=== PATIENT | female | born 1950 | race Caucasian/White ===

== ENCOUNTER 2018-03-21 08:44 | Outpatient (CLI) | payer MEDICARE | END 2018-03-21 08:45 | disposition home or self-care (01) | LOC: BICMAMMO 08:44 | PROVIDERS: ATTEND Family Medicine | DX: Z12.31 Encounter for screening mammogram for malignant neoplasm of breast (principal); N64.89 Other specified disorders of breast | CPT/HCPCS: 77063; 77067 ==

== ENCOUNTER 2018-04-20 14:20 | Outpatient (CLI) | payer MEDICARE | END 2018-04-20 14:21 | disposition home or self-care (01) | LOC: BICULT 14:20 | PROVIDERS: ATTEND Family Medicine | DX: R92.8 Other abnormal and inconclusive findings on diagnostic imaging of breast (principal); N64.89 Other specified disorders of breast | CPT/HCPCS: 77065; G0279 ==

== ENCOUNTER 2018-11-03 13:54 | Outpatient (CLI) | payer MEDICARE | END 2018-11-03 13:55 | disposition home or self-care (01) | LOC: BICMAMMO 13:54 | PROVIDERS: ATTEND Family Medicine | DX: R92.8 Other abnormal and inconclusive findings on diagnostic imaging of breast (principal); N64.89 Other specified disorders of breast | CPT/HCPCS: 77065; G0279 ==

== ENCOUNTER 2019-04-26 09:15 | Outpatient (CLI) | payer MEDICARE ==
--- NOTE | 2019-04-26 10:19 | MMO ---
Bilateral MAMMO Bilat Diag DDI+ANGUS. CLINICAL HISTORY: Patient is 68 years old and is seen for diagnostic exam. The patient has no family history of breast cancer. The patient has no personal history of cancer. VIEWS: The views performed were: bilateral craniocaudal with tomosynthesis; bilateral mediolateral oblique with tomosynthesis; bilateral mediolateral; and left exaggerated craniocaudal. FILMS COMPARED: The present examination has been compared to prior imaging studies performed at [facility] on 03/21/2018, 04/20/2018, 11/03/2018 and 04/26/2019. MAMMOGRAM FINDINGS: The breasts are heterogeneously dense, which could obscure a lesion on mammography. There is a stable focal asymmetry seen in the axillary tail of the left breast. Sonography of this region demonstrates a normal appearing lymph node without addtional abnormality. It is uncertain whether this lymph node corresponds to the mammographic finding. In the right breast, there are no suspicious masses, calcifications or areas of architectural distortion. IMPRESSION: STABLE FOCAL ASYMMETRY IN THE LEFT BREAST IS PROBABLY BENIGN. FOLLOW-UP IN 6 MONTHS IS RECOMMENDED. THE RESULTS OF THIS EXAM WERE SENT TO THE PATIENT. ACR BI-RADS Category 3 - Probably benign finding - short interval follow-up suggested. [facility] will notify the patient of the need for additional imaging services. MAMMOGRAPHY NOTE: 1. A negative mammogram report should not delay a biopsy if a dominant of clinically suspicious mass is present. 2. Approximately 10% to 15% of breast cancers are not detected by mammography. 3. Adenosis and dense breasts may obscure an underlying neoplasm.
--- NOTE | 2019-04-26 11:16 | ULT ---
LIMITED LEFT BREAST ULTRASOUND: 04/26/2019 PROVIDED CLINICAL HISTORY: Abnormal mammogram. FINDINGS: Limited sonographic interrogation was performed at the 2 o'clock position in the left breast, in the region of mammographic concern. An intramammary lymph node is seen in this location. No concerning sonographic findings are evident. IMPRESSION: BI-RADS category 2-Benign findings. Return to annual screening mammography recommended. POS: OFF
== END 2019-04-26 09:16 | disposition home or self-care (01) ==
LOC: BICMAMMO 09:15
PROVIDERS: ATTEND Family Medicine
DX: R92.8 Other abnormal and inconclusive findings on diagnostic imaging of breast (principal); N64.89 Other specified disorders of breast
CPT/HCPCS: 76642; 77066; G0279

== ENCOUNTER 2019-10-26 08:54 | Outpatient (CLI) | payer MEDICARE ==
--- NOTE | 2019-10-26 10:10 | MMO ---
Left Breast MAMMO Unilat Diag DDI LT+ANGUS. CLINICAL HISTORY: Patient is 69 years old and is seen for follow-up at short-interval from prior study. The patient has no family history of breast cancer. The patient has no personal history of cancer. VIEWS: The views performed were: left craniocaudal with tomosynthesis; left mediolateral oblique with tomosynthesis; left mediolateral with tomosynthesis; and left exaggerated craniocaudal. FILMS COMPARED: The present examination has been compared to prior imaging studies performed at [facility] on 11/03/2018, 04/26/2019 and 10/26/2019. This study has been interpreted with the assistance of computer-aided detection. MAMMOGRAM FINDINGS: There are scattered fibroglandular densities. There is a stable mass seen in the MLO view only seen in the posterior upper region of the left breast. The small mass was first noted in March 2018. One last follow up mammogram and ultrasound of the left breast in March or April of 2020 would be the 2 year anniversary. If it is stable by that time, then no further follow up will be necessary. IMPRESSION: STABLE MASS IN THE LEFT BREAST IS PROBABLY BENIGN. FOLLOW-UP IN 6 MONTHS IS RECOMMENDED. THE RESULTS OF THIS EXAM WERE SENT TO THE PATIENT. ACR BI-RADS Category 3 - Probably benign finding - short interval follow-up suggested. [facility] will notify the patient of the need for additional imaging services. MAMMOGRAPHY NOTE: 1. A negative mammogram report should not delay a biopsy if a dominant of clinically suspicious mass is present. 2. Approximately 10% to 15% of breast cancers are not detected by mammography. 3. Adenosis and dense breasts may obscure an underlying neoplasm. Reported by: ROBBY FANG MD Electonically Signed: [id number]
--- NOTE | 2019-10-26 11:20 | ULT ---
ULTRASOUND LEFT BREAST LIMITED: 10/26/2019 HISTORY: A 69-year-old female for followup of left breast mass. COMPARISON: Ultrasound of 04/26/2019. TECHNIQUE: Focused ultrasound of posterior upper left breast from 11 to 2 o'clock. FINDINGS: At the posterior upper outer quadrant, at the axillary tail, there is an approximately 1.5 cm mixed h yperechoic and intermediate echogenicity mass, consistent with a lymph node. It has not changed. It is still uncertain whether the sonographic finding corresponds to the mammographic nodule. No othe r focal lesion is identified on the ultrasound. The patient's original mammogram in which the nodule was discovered was in March 2018. Another final fo llow-up left mammogram and left breast ultrasound will be recommended for March or April 2020 which woul d be the two year anniversary of the original discovery. If the mass remains the same at that time, t hen no further short interval followups will be necessary. IMPRESSION: 1. BI-RADS 3 - probably benign. Short interval followup suggested. 2. Recommend one final left breast ultrasound and left mammogram followup in March or April 2020. POS: NAIN
== END 2019-10-26 08:55 | disposition home or self-care (01) ==
LOC: BICMAMMO 08:54
PROVIDERS: ATTEND Family Medicine
DX: R92.8 Other abnormal and inconclusive findings on diagnostic imaging of breast (principal); N63.21 Unspecified lump in the left breast, upper outer quadrant
CPT/HCPCS: 76642; 77065; G0279

== ENCOUNTER 2020-04-29 09:19 | Outpatient (CLI) | payer MEDICARE ==
--- NOTE | 2020-04-29 10:26 | ULT ---
EXAM: US Breast Limited Lt PROVIDED CLINICAL HISTORY: Left breast mass COMPARISON: Concurrent diagnostic mammogram Breast ultrasound in 6 10/26/2019 and 04/26/2019 FINDINGS: The previously described mixed echogenicity mass at 2:00 position of the left breast is not demonstra tayo on the current study. At the 2:00 position of the left breast there is a poorly marginated hypoechoic mass with posterior shadowing measuring approximately 7 mm. This was not seen on prior ult rasound. This is felt to correspond to the mammographic finding. IMPRESSION: Sonographic findings on the current examination are suspicious. Ultrasound-guided biopsy is recommend ed. Results and recommendations discussed with the patient and questions answered. BI-RADS 4 -- suspicious abnormality, biopsy recommended
--- NOTE | 2020-04-29 10:27 | MMO ---
Bilateral MAMMO Bilat Diag DDI+ANGUS. CLINICAL HISTORY: Patient is 69 years old and is seen for diagnostic exam. The patient has no family history of breast cancer. The patient has no personal history of cancer. VIEWS: The views performed were: bilateral craniocaudal with tomosynthesis; bilateral mediolateral oblique with tomosynthesis; bilateral mediolateral with tomosynthesis; and left exaggerated craniocaudal. FILMS COMPARED: The present examination has been compared to prior imaging studies performed at [facility] on 04/26/2019, 10/26/2019 and 04/29/2020. This study has been interpreted with the assistance of computer-aided detection. MAMMOGRAM FINDINGS: There are scattered fibroglandular densities. There is a focal asymmetry measuring 8 millimeters with spiculated margins seen in the left breast at 2 o'clock. This is slightly larger than on prior imaging. Today's ultrasound demonstrates a corresponding suspicious mass, for which biopsy is recommended. In the right breast, there are no suspicious masses, calcifications or areas of architectural distortion. IMPRESSION: FOCAL ASYMMETRY IN THE LEFT BREAST IS SUSPICIOUS. BIOPSY IS RECOMMENDED. THE RESULTS OF THIS EXAM WERE SENT TO THE PATIENT. ACR BI-RADS Category 4 - Suspicious abnormality - biopsy should be considered MAMMOGRAPHY NOTE: 1. A negative mammogram report should not delay a biopsy if a dominant of clinically suspicious mass is present. 2. Approximately 10% to 15% of breast cancers are not detected by mammography. 3. Adenosis and dense breasts may obscure an underlying neoplasm. Reported by: OSMAR FLOREZ MD Electonically Signed: [id number]
== END 2020-04-29 09:20 | disposition home or self-care (01) ==
LOC: BICMAMMO 09:19
PROVIDERS: ATTEND Family Medicine
DX: R92.8 Other abnormal and inconclusive findings on diagnostic imaging of breast (principal); N64.89 Other specified disorders of breast
CPT/HCPCS: 76642; 77066; G0279

== ENCOUNTER 2020-05-08 12:35 | Outpatient (CLI) | payer MEDICARE ==
--- NOTE | 2020-05-08 12:53 | MMO ---
Left Breast MAMMO Unilat Diag DDI LT. CLINICAL HISTORY: Patient is 69 years old and is seen for diagnostic exam. The patient has no family history of breast cancer. The patient has no personal history of cancer. The patient has a history of left Excisional Biopsy in April,. VIEWS: The views performed were: left craniocaudal and left mediolateral oblique. FILMS COMPARED: The present examination has been compared to prior imaging studies performed at [facility] on 10/26/2019 and 04/29/2020. This study has been interpreted with the assistance of computer-aided detection. MAMMOGRAM FINDINGS: There are scattered fibroglandular densities. There is a new biopsy clip seen in the left breast. IMPRESSION: NEW BIOPSY CLIP IN THE LEFT BREAST IS CONFIRMED UTILIZING POST PROCEDURE MAMMOGRAM. THE RESULTS OF THIS EXAM WERE SENT TO THE PATIENT. MAMMOGRAPHY NOTE: 1. A negative mammogram report should not delay a biopsy if a dominant of clinically suspicious mass is present. 2. Approximately 10% to 15% of breast cancers are not detected by mammography. 3. Adenosis and dense breasts may obscure an underlying neoplasm. Reported by: OSMAR FLOREZ MD Electonically Signed: [id number]
== END 2020-05-08 12:36 | disposition home or self-care (01) ==
LOC: BICMAMMO 12:35
PROVIDERS: ATTEND Specialist
DX: N63.20 Unspecified lump in the left breast, unspecified quadrant (principal)
CPT/HCPCS: 88305; 88341; 88342

== ENCOUNTER 2020-05-16 05:53 | Outpatient (CLI) | payer MEDICARE, OTHER ==
[2020-05-16 14:15] LABS: #Eosinphils 0.2 thou/uL (0.0-0.7); #Lymphocytes 1.2 thou/uL (1.20-3.40); #Monocytes 0.4 thou/uL (0.11-0.59); #Neutrophils 1.9 thou/uL (1.40-6.50); %Basophils 0.8 % (0.0-1.0); %Eosinophils 4.3 % (0.0-10.0); %Lymphocytes 33.1 % (21.0-51.0); %Monocytes 11.7 % (0.0-10.0); %Neutrophils 50.1 % (42.0-75.0); Hemoglobin 14.7 g/dL (12.0-16.0); Mean Corpuscular HGB CONC 31.7 g/dL (32.0-36.0); Mean Corpuscular Hemoglobin 31.1 pg (27.0-31.0); Mean Corpuscular Volume 98.2 fL (78.0-98.0); Mean Platelet Volume 8.5 fL (7.4-10.4); Platelet Count 208 thou/uL (130-400); RBC Distribution Width 11.7 % (11.5-14.5); Red Blood Cell (RBC) Count 4.73 mill/uL (4.20-5.40); White Blood Cell (WBC) Count 3.7 thou/uL (4.8-10.8)
[2020-05-16 14:25] LABS: Anion Gap 14 mmol/L (10-20); BUN (Urea Nitrogen) 14 mg/dL (9.8-20.1); Calc. Creatinine Clearance 0 mL/min (70-130); Calcium 9.5 mg/dL (7.8-10.44); Carbon Dioxide 27 mmol/L (23-31); Chloride 102 mmol/L (98-107); Estimated GFR-MDRD 72; Glucose 105 mg/dL (80-115); Potassium 4.1 mmol/L (3.5-5.1); Sodium 139 mmol/L (136-145)
[2020-05-17 16:01] LABS: SARS-CoV-2 MS2 Positive; SARS-CoV-2 N Gene Negative; SARS-CoV-2 S Gene Negative; SARS-CoV-2 orf1ab Negative
--- NOTE | 2020-05-20 10:10 | EKG ---
Test Reason : PREOP FOR 05/21 Blood Pressure : / mmHG Vent. Rate : 080 BPM Atrial Rate : 080 BPM P-R Int : 138 ms QRS Dur : 090 ms QT Int : 392 ms P-R-T Axes : 057 006 034 degrees QTc Int : 452 ms Normal sinus rhythm with sinus arrhythmia Nonspecific ST abnormality Abnormal ECG No previous ECGs available Confirmed by RAMON MICHAUD (2) on 05/20/2020 10:09:53 AM Referred By: HENRIETTA Confirmed By:RAMON MICHAUD
== END 2020-05-16 05:54 | disposition home or self-care (01) ==
LOC: LABBT 05:53
PROVIDERS: ATTEND Specialist
DX: Z01.818 Encounter for other preprocedural examination (principal); Z11.59 Encounter for screening for other viral diseases; C50.912 Malignant neoplasm of unspecified site of left female breast
CPT/HCPCS: 80048; 85025; 93005; U0003; 87635; 93010

== ENCOUNTER 2020-05-21 07:31 | Day surgery (SDC) | payer MEDICARE ==
[2020-05-15 12:42] VITALS: BMI 33.0
--- NOTE | 2020-05-21 09:03 | NM ---
Exam: Nuclear medicine lymphoscintigraphy HISTORY: Left breast cancer TECHNIQUE: Patient was administered total of 0.379 mm of technetium 90 9M filtered sulfur colloid sub cutaneously at the 12:00, 3:00, 6:00 and 9:00 positions FINDINGS: There is a left axillary sentinel lymph node IMPRESSION: Left axillary sentinel lymph node.
[2020-05-21] MEDS ORDERED: Acetaminophen 500 MG TAB ONE (09:11)
[2020-05-21] MEDS ORDERED: Ketorolac Tromethamine 30 MG/ML VIAL ONE (09:11)
[2020-05-21] MEDS ORDERED: Methylene Blue 50 MG/10 ML AMPUL ONE (09:44)
[2020-05-21] MEDS ORDERED: Lidocaine 1% w/Epinephrine 1:100K 20 ML VIAL ONE (09:44)
[2020-05-21] MEDS ORDERED: Bupivacaine 0.25% HCL 30 ML VIAL ONE (09:44)
[2020-05-21] MEDS ORDERED: Ondansetron PF 4 MG/2 ML Vial ONE ×2 (09:45→12:45)
[2020-05-21] MEDS ORDERED: Fentanyl 100 MCG/2 ML VIAL ONE (09:45)
[2020-05-21] MEDS ORDERED: Isosulfan Blue 50 MG/5 ML VIAL ONE (09:50)
[2020-05-21] MEDS ORDERED: Dexamethasone 20 MG/5 ML VIAL ONE (12:45)
[2020-05-21] MEDS ORDERED: Lidocaine 1% PF 5 ML VIAL ONE (12:45)
[2020-05-21] MEDS ORDERED: EPHEDRINE 25 MG/5 ML SYRINGE ONE (12:45)
[2020-05-21] MEDS ORDERED: PROPOFOL 200 MG/20 ML VIAL ONE (12:45)
--- NOTE | 2020-05-22 11:27 | OP ---
DATE OF PROCEDURE: 05/21/2020 PREOPERATIVE DIAGNOSIS: Left breast invasive ductal carcinoma. POSTOPERATIVE DIAGNOSIS: Left breast invasive ductal carcinoma. PROCEDURE PERFORMED: Left breast ultrasound-guided needle localization, left axillary sentinel lymph node mapping, left sentinel lymph node biopsy, left breast needle localized lumpectomy (performed through the same incision). ANESTHESIA: General endotracheal. INDICATIONS: The patient is a 69-year-old white female. She had presented with a concerning lesion in the upper outer left breast that was biopsy proven to be adenocarcinoma. She was taken to the operating room at this time for definitive treatment of her breast cancer. DESCRIPTION OF OPERATION: Informed consent was obtained. The patient underwent preoperative lymphoscintigraphy identifying left axillary sentinel lymph nodes. 3 mL of Lymphazurin was infiltrated in the left breast in the periareolar subdermal tissue. This was massaged for 5 minutes. The breast and axilla were then prepped with ChloraPrep and draped in sterile fashion. Attention was turned first to the breast lesion. This was identified with ultrasound and location was mapped in a grid fashion on the breast. A localizing needle was then passed through the lesion in a medial to lateral fashion. Taking this into account, local anesthetic was infiltrated and a transverse left axillary incision was created. Dissection was carried through skin and subcutaneous tissue. Neoprobe was utilized to identify areas of maximum radio intensity. I was able to identify 2 separate radio intense lymph nodes. The first was much more radio avid and contained blue dye. Following the removal of these 2 lymph nodes, there was no other area of significant radio activity. The incision was then extended medially to include the area of the localizing needle. A flap was raised inferiorly. I then grasped the tissue into which the needle entered and dissected a wide lump of tissue around the needle to include the area of the malignancy. The specimen was passed off the field and specimen mammography revealed the presence of a clip within the specimen. The area of the density was appreciated as well. Meticulous hemostasis was obtained within the wound. It was closed in layers with 3-0 and 4-0 Monocryl. Dermabond was placed externally. Additional local anesthetic was infiltrated during closure. There were no complications. The patient tolerated the procedure well and was taken to recovery room in stable condition. Job ID: [id number]
== END 2020-05-21 13:23 | disposition home or self-care (01) ==
LOC: SDC 07:31
PROVIDERS: ATTEND Specialist
PROC: 0HBU0ZZ Excision of Left Breast, Open Approach (ICD-10-PCS; principal; 2020-05-21)
PROC: 07B60ZX Excision of Left Axillary Lymphatic, Open Approach, Diagnostic (ICD-10-PCS; 2020-05-21)
DX: C50.412 Malignant neoplasm of upper-outer quadrant of left female breast (principal); J45.909 Unspecified asthma, uncomplicated; M85.80 Other specified disorders of bone density and structure, unspecified site; E78.5 Hyperlipidemia, unspecified; E89.0 Postprocedural hypothyroidism; Z17.0 Estrogen receptor positive status [ER+]; Z79.899 Other long term (current) drug therapy; Z88.8 Allergy status to other drugs, medicaments and biological substances; Z90.49 Acquired absence of other specified parts of digestive tract
CPT/HCPCS: 19301; 38525; 38900; 76098; 78195; 88307; 88342; A9541; Q9968; J0690; J1100; J1885; J2405; J2704; J3010; S0020

== ENCOUNTER 2020-08-23 08:13 | Outpatient (CLI) | payer MEDICARE ==
--- NOTE | 2020-08-23 10:53 | BD ---
DEXA BONE DENSITY STUDY: HISTORY: Postmenopausal. FINDINGS: Lumbar Spine: BMD (g/cm2) L1 0.895 T-Score: -0.9 L2 1.094 T-Score: +0.6 L3 1.166 T-Score: +0.7 L4 1.035 T-Score: +2.2 L1-L4 1.118 T-Score: +0.6 Femoral Neck: 0.754 T-Score: -0.9 Total Femur: 0.941 T-Score: +0.0 Impression: Normal bone mineral density of the lumbar spine and left femoral neck. POS: GABRIEL
== END 2020-08-23 08:14 | disposition home or self-care (01) ==
LOC: BICMAMMO 08:13
PROVIDERS: ATTEND Family Medicine
DX: Z13.820 Encounter for screening for osteoporosis (principal); C50.412 Malignant neoplasm of upper-outer quadrant of left female breast
CPT/HCPCS: 77080

== ENCOUNTER 2021-02-19 09:17 | Outpatient (CLI) | payer MEDICARE | END 2021-02-19 09:18 | disposition home or self-care (01) | LOC: BICMRI 09:17 | PROVIDERS: ATTEND Specialist | DX: M51.16 Intervertebral disc disorders with radiculopathy, lumbar region (principal); M48.061 Spinal stenosis, lumbar region without neurogenic claudication; M47.26 Other spondylosis with radiculopathy, lumbar region | CPT/HCPCS: 72148 ==

== ENCOUNTER 2021-02-28 08:59 | Outpatient (CLI) | payer MEDICARE | END 2021-02-28 09:00 | disposition home or self-care (01) | LOC: RAD-FRANK 08:59 | PROVIDERS: ATTEND Specialist | DX: M43.16 Spondylolisthesis, lumbar region (principal) | CPT/HCPCS: 72120 ==

== ENCOUNTER 2021-09-30 09:32 | Outpatient (CLI) | payer MEDICARE | END 2021-09-30 09:33 | disposition home or self-care (01) | LOC: BICMAMMO 09:32 | PROVIDERS: ATTEND Internal Medicine Hematology & Oncology | DX: Z13.820 Encounter for screening for osteoporosis (principal); C50.412 Malignant neoplasm of upper-outer quadrant of left female breast; M85.851 Other specified disorders of bone density and structure, right thigh | CPT/HCPCS: 77080 ==

== ENCOUNTER 2022-02-20 12:23 | Outpatient (CLI) | payer MEDICARE | END 2022-02-20 12:24 | disposition home or self-care (01) | LOC: BICRAD 12:23 | PROVIDERS: ATTEND Family Medicine | DX: M20.012 Mallet finger of left finger(s) (principal) ==

== ENCOUNTER 2022-06-24 08:56 | Outpatient (CLI) | payer MEDICARE | END 2022-06-24 08:57 | disposition home or self-care (01) | LOC: BICMAMMO 08:56 | PROVIDERS: ATTEND Family Medicine | DX: Z08 Encounter for follow-up examination after completed treatment for malignant neoplasm (principal); Z85.3 Personal history of malignant neoplasm of breast | CPT/HCPCS: 77066; G0279; 77063; 77067 ==

== ENCOUNTER 2022-10-02 09:53 | Outpatient (CLI) | payer MEDICARE | END 2022-10-02 09:54 | disposition home or self-care (01) | LOC: BICMAMMO 09:53 | PROVIDERS: ATTEND Internal Medicine Hematology & Oncology | DX: Z13.820 Encounter for screening for osteoporosis (principal); C50.412 Malignant neoplasm of upper-outer quadrant of left female breast; M85.851 Other specified disorders of bone density and structure, right thigh; M85.852 Other specified disorders of bone density and structure, left thigh; T38.6X5A Adverse effect of antigonadotrophins, antiestrogens, antiandrogens, not elsewhere classified, initial encounter | CPT/HCPCS: 77080 ==

== ENCOUNTER 2023-06-29 14:49 | Outpatient (CLI) | payer MEDICARE | END 2023-06-29 14:50 | disposition home or self-care (01) | LOC: BICMAMMO 14:49 | PROVIDERS: ATTEND Specialist | DX: Z12.31 Encounter for screening mammogram for malignant neoplasm of breast (principal); D05.12 Intraductal carcinoma in situ of left breast; Z90.12 Acquired absence of left breast and nipple; Z91.89 Other specified personal risk factors, not elsewhere classified | CPT/HCPCS: 77063; 77067 ==

== ENCOUNTER 2023-11-16 10:49 | Outpatient (CLI) | payer MEDICARE | END 2023-11-16 10:50 | disposition home or self-care (01) | LOC: BICMRI 10:49 | PROVIDERS: ATTEND Specialist | DX: M50.121 Cervical disc disorder at C4-C5 level with radiculopathy (principal); M50.122 Cervical disc disorder at C5-C6 level with radiculopathy; M50.123 Cervical disc disorder at C6-C7 level with radiculopathy; G95.89 Other specified diseases of spinal cord | CPT/HCPCS: 72141 ==

== ENCOUNTER 2023-11-26 14:10 | Outpatient (CLI) | payer MEDICARE | END 2023-11-26 14:11 | disposition home or self-care (01) | LOC: BICMAMMO 14:10 | PROVIDERS: ATTEND Internal Medicine Hematology & Oncology | DX: Z13.820 Encounter for screening for osteoporosis (principal); C50.412 Malignant neoplasm of upper-outer quadrant of left female breast; M85.851 Other specified disorders of bone density and structure, right thigh; M85.852 Other specified disorders of bone density and structure, left thigh | CPT/HCPCS: 77080 ==

== ENCOUNTER 2024-11-29 09:13 | Outpatient (CLI) | payer MEDICARE | END 2024-11-29 09:14 | disposition home or self-care (01) | LOC: BICMAMMO 09:13 | PROVIDERS: ATTEND Internal Medicine Hematology & Oncology | DX: C50.412 Malignant neoplasm of upper-outer quadrant of left female breast (principal); M81.0 Age-related osteoporosis without current pathological fracture; M85.852 Other specified disorders of bone density and structure, left thigh | CPT/HCPCS: 77080 ==

== ENCOUNTER 2025-07-02 09:13 | Outpatient (CLI) | payer MEDICARE | END 2025-07-02 09:14 | disposition home or self-care (01) | LOC: BICMAMMO 09:13 | PROVIDERS: ATTEND Specialist | DX: Z12.31 Encounter for screening mammogram for malignant neoplasm of breast (principal); Z85.3 Personal history of malignant neoplasm of breast; Z98.890 Other specified postprocedural states | CPT/HCPCS: 77063; 77067 ==